=== PATIENT | male | born 1960 | race Caucasian/White ===

== ENCOUNTER 2023-11-25 15:00 | Outpatient (RCR) | payer BC, SELFPAY | END 2024-03-24 23:59 | disposition home or self-care (01) | PROVIDERS: PCP Family Medicine; Visit Provider Family Medicine | DX: I89.0 Lymphedema, not elsewhere classified (principal); Z51.89 Encounter for other specified aftercare | CPT/HCPCS: 97140; 97165; 97535 ==

== ENCOUNTER 2025-01-02 12:07 | Outpatient (CLI) | payer BC, SELFPAY ==
[2025-01-02 15:17] LABS: Vitamin B12* 351 pg/mL (243-894); Vitamin D 25 Hydroxy* 45 ng/mL (30-80)
[2025-01-02 15:48] LABS: Hepatitis C Virus Antibody* Negative (Negative)
[2025-01-04 14:38] LABS: QuantiFERON Mitogen minus NIL 9.98 IU/mL; QuantiFERON NIL 0.02 IU/mL; Quantiferon Plus TB1 minus NIL 0.01 IU/mL (<=0.34); Quantiferon TB Gold Plus Negative (Negative)
== END 2025-01-02 12:08 | disposition home or self-care (01) ==
PROVIDERS: PCP Family Medicine; Visit Provider Psychiatry & Neurology Neurology
DX: G35 Multiple sclerosis (principal)
CPT/HCPCS: 36415; 82306; 82607; 86355; 86356; 86480; 86704; 86706; 86711; 86803; 87340

== ENCOUNTER 2025-02-06 12:30 | Outpatient (RCR) | payer BC, SELFPAY | END 2025-06-06 23:59 | disposition home or self-care (01) | PROVIDERS: PCP Family Medicine; Visit Provider Family Medicine | DX: I89.0 Lymphedema, not elsewhere classified (principal); Z51.89 Encounter for other specified aftercare | CPT/HCPCS: 97140; 97165; 97530; 97535 ==

== ENCOUNTER 2025-03-22 14:05 | Outpatient (CLI) | payer BC, SELFPAY ==
[2025-03-22 16:12] LABS: Hepatitis B Surface Antibody* Positive (Negative)
[2025-03-25 11:58] LABS: Hepatitis B Core Antibody, IgM Negative (Negative)
== END 2025-03-22 14:06 | disposition home or self-care (01) ==
LOC: LAB 14:12
PROVIDERS: PCP Family Medicine; Visit Provider Psychiatry & Neurology Neurology
DX: G35 Multiple sclerosis (principal); B19.10 Unspecified viral hepatitis B without hepatic coma
CPT/HCPCS: 36415; 86334; 86705; 86706